=== PATIENT | female | born 1955 | race Caucasian/White ===

== ENCOUNTER 2021-06-27 14:20 | Outpatient (CLI) | payer MEDICARE, SELFPAY ==
[2021-06-27 15:04] LABS: Basophils Percent Auto 0.3 % (0.2-1.2); Eosinophils Percent Auto 0.5 % (0-4.4); Hematocrit 37.6 % (37.0-47.0); Hemoglobin 12.4 g/dL (12.0-15.0); Immature Granulocyte Absolute 0.02 K/mm3 (0.00-0.031); Immature Granulocyte Percent A 0.3 % (0-0.5); Lymphocytes Absolute Auto 1.32 K/mm3 (0.9-3.2); Lymphocytes Percent Auto 20.4 % (18.3-44.2); Mean Corpuscular Hemoglobin 31.9 pg (26-34); Mean Corpuscular Volume 96.7 fl (80-100); Mean Platelet Volume 10.1 fl (7.4-10.4); Monocytes Absolute Auto 0.5 K/mm3 (0.1-0.6); Monocytes Percent Auto 7.4 % (2.6-8.5); Neutrophils Absolute Auto 4.6 K/mm3 (1.3-6.7); Neutrophils Percent Auto 71.1 % (45.5-73.1); Platelet Count Result 204 k/mm3 (150-375); Red Blood Count 3.89 M/mm3 (4.2-5.4); Red Cell Distribution Width 12.5 % (11.5-14.5); White Blood Count 6.5 K/mm3 (4.5-10.0)
[2021-06-27 15:14] LABS: Alanine Aminotransferase 20 U/L (4-35); Albumin Level 4.8 g/dL (3.5-5.1); Alkaline Phosphatase 81 U/L (38-126); Anion Gap 12 mmol/L (8-16); Aspartate Amino Transferase 32 U/L (14-36); Bilirubin,Total 0.7 mg/dL (0.2-1.3); Blood Urea Nitrogen 16 mg/dL (7-17); Calcium 9.6 mg/dL (8.4-10.2); Carbon Dioxide 23 mmol/L (22-30); Chloride 102 mmol/L (98-107); Cholesterol 243 mg/dL (0-200); Estimated Glomerular Filt Rate > 60; Glucose 98 mg/dL (65-110); HDL Direct 70 mg/dL; Potassium 4.1 mmol/L (3.4-5.0); Sodium 137 mmol/L (137-145); Triglycerides 69 mg/dL (<150)
[2021-06-27 15:25] LABS: LDL Cholesterol Direct 138 mg/dL
[2021-06-27 15:31] LABS: Vitamin D 25 Hydroxy 47.6 ng/mL
== END 2021-06-27 14:21 | disposition home or self-care (01) ==
LOC: ANHLAB 14:36
PROVIDERS: PCP Internal Medicine; Visit Provider Internal Medicine
DX: L03.90 Cellulitis, unspecified (principal); Z00.00 Encounter for general adult medical examination without abnormal findings; E78.2 Mixed hyperlipidemia
CPT/HCPCS: 36415; 80053; 80061; 82306; 84443; 85025

== ENCOUNTER 2024-02-23 11:27 | Emergency (ER) | payer MEDICARE, SELFPAY ==
[2024-02-23] VITALS (20 sets, daily range): BP systolic 124–143; BP diastolic 57–69; PULSE 100–114; RESP 16–18; TEMP 36.4; O2SAT 94–100
--- NOTE | ~2024-02-23 | CT_ITS ---
EXAMINATION: CT abdomen pelvis w con DATE: 02/23/2024 13:12 INDICATION: Abdominal distention. Low abdominal tenderness. TECHNIQUE: Computed tomography (CT) of the abdomen and pelvis was performed with 100 mL Omnipaque 350 intravenous contrast. Automated exposure control and iterative reconstruction technique were employe d. The dose-length product was 474.97 mGy-cm. COMPARISON: None. FINDINGS: The lungs demonstrate mild atelectasis. There is a small right pleural effusion. The heart size is normal. There is a trace pericardial effusion. There is a small sliding hiatal hernia. The li nneka, gallbladder, spleen, pancreas, adrenal glands, and kidneys are normal. There are no dilated loop s of bowel. The appendix is normal. There is a large volume of ascites with peritoneal thickening and enhancement and septations that is contiguous with an ill-defined mass of the endometrium of the [place] with discontinuity of the myometrium of the uterus. There is moderate thoracic and lumbar spondyl osis. There is mild chronic anterior wedging of multiple vertebral bodies. IMPRESSION: 1. Large ill-defined endometrial mass with direct extension to the peritoneum with large volume of as cites and peritoneal carcinomatosis. 2. Small right pleural effusion. Reviewed, dictated and finalized at location E. IMPRESSION: 1. Large ill-defined endometrial mass with direct extension to the peritoneum w ith large volume of ascites and peritoneal carcinomatosis. 2. Small right pleural effusion.
[2024-02-23 12:04] LABS: Basophils Percent Auto 0.2 % (0.2-1.2); Eosinophils Percent Auto 0.1 % (0-4.4); Hematocrit 26.8 % (37.0-47.0); Hemoglobin 8.2 g/dL (12.0-15.0); Immature Granulocyte Absolute 0.08 K/mm3 (0.00-0.031); Immature Granulocyte Percent A 0.5 % (0-0.5); Lymphocytes Absolute Auto 0.65 K/mm3 (0.9-3.2); Lymphocytes Percent Auto 4.4 % (18.3-44.2); Mean Corpuscular HGB Conc 30.6 g/dl (32-36); Mean Corpuscular Hemoglobin 25.8 pg (26-34); Mean Corpuscular Volume 84.3 fl (80-100); Monocytes Absolute Auto 1.1 K/mm3 (0.1-0.6); Monocytes Percent Auto 7.1 % (2.6-8.5); Neutrophils Absolute Auto 13.1 K/mm3 (1.3-6.7); Neutrophils Percent Auto 87.7 % (45.5-73.1); Platelet Count Result 524 k/mm3 (150-375); Red Blood Count 3.18 M/mm3 (4.2-5.4); Red Cell Distribution Width 14.4 % (11.5-14.5); White Blood Count 14.9 K/mm3 (4.5-10.0)
[2024-02-23 12:15] LABS: Alanine Aminotransferase 18 U/L (6-35); Albumin Level 3.4 g/dL (3.5-5.1); Alkaline Phosphatase 69 U/L (38-126); Anion Gap 12 mmol/L (4-12); Aspartate Amino Transferase 45 U/L (14-36); Bilirubin,Total 0.6 mg/dL (0.2-1.3); Blood Urea Nitrogen 14 mg/dL (7-17); Calcium 8.8 mg/dL (8.4-10.2); Carbon Dioxide 18 mmol/L (22-30); Chloride 101 mmol/L (98-107); Estimated CRCL calculation 69 ml/min; Estimated Glomerular Filt Rate > 60; Glucose 135 mg/dL (65-110); Lipase 43 U/L (23-300); Potassium 3.7 mmol/L (3.4-5.0); Sodium 131 mmol/L (137-145)
[2024-02-23 12:37] LABS: Hypochromasia 1+; Large Platelets Present; Platelet Estimate Increased (Adequate)
[2024-02-23 12:38] LABS: Anisocytosis 1+
[2024-02-23 12:39] LABS: Poikilocytosis 1+; Schistocytes None Seen
[2024-02-23] MEDS: SODIUM CHLORIDE 0.9% IV 1,000 ML 999 ML IV CONT (12:55)
--- NOTE | 2024-02-23 13:32 | ED.ABDPAIN ---
HPI - Abdominal Pain General Chief Complaint: Abdominal Pain <YOUSIF Gilbert Last Filed: 02/23/24 18:09> Stated Complaint: abd distention <YOUSIF Gilbert Last Filed: 02/23/24 18:09> Time Seen by Provider: 02/23/24 12:33 <YOUSIF Gilbert Last Filed: 02/23/24 18:09> Source: patient <YOUSIF Gilbert Last Filed: 02/23/24 18:09> Mode of arrival: ambulatory <YOUSIF Gilbert Last Filed: 02/23/24 18:09> Limitations: no limitations <YOUSIF Gilbert Last Filed: 02/23/24 18:09> History of Present Illness HPI narrative: This is a 68-year-old female who presents to the ED with chief complaint of abdominal pain and bloating for the past couple of weeks. Reports that she has had intermittent problems with this for the past 4 years. States that she has not been to a doctor in many years. Reports she had chronic vaginal bleeding which seemed to have resolved in December 2023 and has not had any since. She does endorse some darker stools recently however. Reports her abdomen feels very bloated and that she has loss of appetite. Reports that her stomach is very uncomfortable whenever she eats. Endorses intermittent nausea but no vomiting. Denies fevers, chills, back pain, chest pain, shortness of breath, cough, hemoptysis, headache, lightheadedness, syncope or fall. <YOUSIF Gilbert Last Filed: 02/23/24 18:09> Related Data Home Medications: Home Medications Medication Instructions Recorded Confirmed No Home Medications 07/02/21 07/02/21 <YOSUIF Gilbert Last Filed: 02/23/24 18:09> Allergies/Adverse Reactions: Allergies Allergy/AdvReac Type Severity Reaction Status Date / Time niacin Allergy Intermediate FACE Verified 07/02/21 10:10 SWELLING VITAMIN E Allergy Intermediate Swelling Uncoded 07/02/21 10:09 <YOUSIF Gilbert Last Filed: 02/23/24 18:09> Review of Systems Review of Systems: All systems as dictated in HPI <Giovanny Wu PA-C - Last Filed: 02/23/24 18:09> PMFSH Family History Family History: Family History (Updated 01/03/16 @ 11:15 by DOCTOR UNKNOWN) Mother Family history of malignant neoplasm, Onset Age: 80 Patient's mother is , Onset Age: 80 Father Family history of malignant neoplasm, Onset Age: 80 Patient's father is , Onset Age: 80 <Giovanny Wu PA-C - Last Filed: 02/23/24 18:09> Social History Social History: Social History (Updated 07/02/21 @ 10:12 by Lorri Bass MA) Alcohol intake: never Substance use: never Substance use type: does not use <Giovanny Wu PA-C - Last Filed: 02/23/24 18:09> Exam Narrative: GENERAL: Well-appearing, well-nourished, and in no acute distress. HEAD: Normocephalic, atraumatic. EYES: PERRLA and EOMI. ENT: Nares clear, no rhinorrhea or epistaxis. Mucous membranes moist. Oropharynx without tonsillar hypertrophy exudate or other lesions. NECK: Supple. No adenopathy or masses. CHEST: No respiratory distress. Clear to auscultation. No wheezes rales or rhonchi HEART: Regular rate and rhythm. No murmur heard. Normal peripheral pulses. ABDOMEN: Distended abdomen. Soft. Diffusely tender. No rigidity or guarding. MSK: Normal range of motion. No edema. SKIN: Warm, dry, no rash. NEURO: Alert and oriented x3. No focal deficits. PSYCH: Normal mood and affect. <Giovanny Wu PA-C - Last Filed: 02/23/24 18:09> Course CONDUIT BENDER/PA Physician Supervision This visit was performed by both a physician and an APC. I performed all aspects of the MDM as documented. <Sylwia Nassar MD - Last Filed: 02/23/24 21:16> Vital Signs Vital signs: Vital Signs Temperature 97.6 F 02/23/24 11:26 Pulse Rate 114 H 02/23/24 11:26 Respiratory Rate 18 02/23/24 11:26 Blood Pressure 143/66 H 02/23/24 11:26 Pulse Oximetry 100 02/23/24 11:26 Oxygen Delivery Room Air 02/23/24 11:26
--- NOTE | 2024-02-23 18:07 | WPDCN ---
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 Labs, imaging, EKG, and all reports were personally reviewed. CT scan shows endometrial mass with extension into the peritoneum and findings of peritoneal carcinomatosis with large volume ascites. Upwards of 30 minutes was spent with the patient discussing her workup and findings. At the outset she stated that she wanted hospice however than thought perhaps she would like to speak with a adjunct faculty instructor oncologist. I told her we did not have that at this facility and she would half to see them as an outpatient or perhaps could be excepted to a tertiary care facility in transfer. ED provider inquired about admitting her to the hospital here for paracentesis tomorrow and pain control however the patient declined these options and instead stated that she would like to go home with a hospice referral. [facility] Data of Consult Date/Time: 02/23/24 16:45 Requesting Physician: Giovanny Wu PA-C Primary Care Provider: TECHNOLOGY AND ENGINEERING TEACHER PHYSICIAN Consult Narrative Narrative: This is a previously healthy 68-year-old female whom the hospitalist service has been consulted for possible admission to the hospital after she was found to have a large ill-defined endometrial mass with extension to the peritoneum and a large volume of ascites with peritoneal carcinomatosis on CT scan today. She presented to the emergency department for evaluation of abdominal pain and distension. According to the patient she worked out in the yard for an entire day in mid December cleaning up sticks and the next day her stomach hurt which she has soon and was due to the yard work. Since that time she has developed ever increasing swelling in the abdomen into the legs, left greater than right. She has constant pain which she is unable to describe. It seems to be better when lying flat. She admits that she does not like to go to doctors or take medicine and she has not taken even Tylenol to see if that would help her pain. Her appetite has not been great and she has early satiety. She also mentions that she had vaginal bleeding for 4 years however it seemed to stop abruptly around the same time as her abdomen started to swell. She denies fever, chills, sweats, chest pain, pleuritic pain, shortness of breath, nausea, vomiting, diarrhea, dysuria, and calf pain. Review of Systems Review of Systems: 12 systems were reviewed and are negative except for as per HPI. [facility] Past Medical History Medical History No significant medical problems Family History Family History Mother Family history of malignant neoplasm, Onset Age: 80 Patient's mother is , Onset Age: 80 Father Family history of malignant neoplasm, Onset Age: 80 Patient's father is , Onset Age: 80 Social History Social History (Updated 02/24/24 @ 23:56 by Debi Lima PA-C) Social History: The patient lives with her 2nd in [place]. She had 6 children with her 1st but they are not very close. She is retired. She does need her Lamine Torres her surrogate decision maker. She wishes to be do not resuscitate. Alcohol intake: never Substance use: never Substance use type: does not use Meds Home Medications and Allergies Home Medications Medication Instructions Recorded Confirmed Type No Home Medications 07/02/21
--- NOTE | 2024-02-23 19:06 | PCCCNOTE ---
CC called to the ED for a hospice consult. Pt chose [facility] and wanted to start tomorrow. She is planning on being discharged tonight from the ED and going back home. She has not told any of her family or friends her diagnosis/prognosis. I spoke with Edwar, the on-call intake for [facility], he has all of her information, and I faxed her referral to them. He will call her tomorrow around 1200.
== END 2024-02-23 19:28 | disposition home or self-care (01) ==
PROVIDERS: Emergency Medicine; Emergency Provider Physician Assistant
DX: N94.89 Other specified conditions associated with female genital organs and menstrual cycle (principal); C78.6 Secondary malignant neoplasm of retroperitoneum and peritoneum; R18.8 Other ascites; Z51.5 Encounter for palliative care
CPT/HCPCS: 36415; 74177; 80053; 83690; 85025; 96360; 99284; J7030; Q9967